=== PATIENT | female | born 1945 | race Caucasian/White ===

== ENCOUNTER → 2024-03-16 | Outpatient (CLI) | payer MEDICARE, SELFPAY ==
[2024-03-23 06:41] LABS: Fecal Globin Result DETECTED (NOT DETECTED)
== END | disposition home or self-care (01) ==
LOC: SLDO 11:05
PROVIDERS: Referring Provider Family Medicine; Visit Provider Family Medicine
DX: D64.9 Anemia, unspecified (principal)
CPT/HCPCS: 82274; G0328

== ENCOUNTER → 2024-05-17 | Outpatient (CLI) | payer MEDICARE, SELFPAY ==
[2024-05-17 10:32] LABS: Basophils # (Auto) 0.1 Thou/mm3 (0.0-0.2); Basophils % (Auto) 1 % (0-2.5); Eosinophils # (Auto) 0.2 Thou/mm3 (0.0-0.5); Eosinophils % (Auto) 3 % (0-10); Hematocrit 36.9 % (36.0-46.0); Hemoglobin 11.6 g/dL (12.0-16.0); Immature Granulocytes % (Auto) 0 % (0-0); Immature Granulocytes Auto 0.02 Thou/mm3 (0.00-0.00); Lymphocytes # (Auto) 1.1 Thou/mm3 (1.0-4.8); Lymphocytes % (Auto) 15 % (10-50); Mean Corpuscular HGB Conc 31.4 g/dl (31.0-37.0); Mean Corpuscular Hemoglobin 25.2 pg (25.0-35.0); Mean Corpuscular Volume 80 fL (80-100); Monocytes # (Auto) 0.6 Thou/mm3 (0.0-0.8); Monocytes % (Auto) 8 % (0-12); Neutrophils # (Auto) 5.4 Thou/mm3 (1.8-7.7); Neutrophils % (Auto) 73 % (37-80); Nucleated Red Blood Cell % 0 /100 WBC (0); Platelet Count 247 Thou/mm3 (140-440); RDW Standard Deviation 48.4 fL (36.4-46.3); Red Blood Count 4.61 Miln/mm3 (4.00-5.20); White Blood Count 7.4 Thou/mm3 (3.6-11.0)
[2024-05-17 10:49] LABS: T4 (Thyroxine) 11.1 mcg/dL (4.5-10.9)
[2024-05-17 11:14] LABS: Glucose Estimated Average 131 mg/dL (80-131); Hemoglobin A1C 6.2 % Hgb (4.8-6.0)
[2024-05-17 11:16] LABS: Alanine Aminotransferase 17 U/L (10-49); Albumin, Serum 4.7 gm/dL (3.4-4.8); Albumin/Globulin Ratio 2.2 (1.2-2.2); Alkaline Phosphatase 83 U/L (46-116); Anion Gap 10 (7-16); Aspartate Amino Transferase < 8 U/L (0-34); BUN/Creatinine Ratio 25 Ratio (12-20); Bilirubin,Total 0.4 mg/dL (0.3-1.2); Blood Urea Nitrogen 20 mg/dL (9-23); Calcium 9.6 mg/dL (8.3-10.6); Calcium (Corrected) 9.6 mg/dL (8.5-10.1); Carbon Dioxide 28.3 mMol/L (20.0-31.0); Cardiac Risk Estimate 3.3 RATIO (3.7-5.6); Chloride 104 mMol/L (98-107); Cholesterol 125 mg/dL (132-200); Creatinine (Component) 0.8 mg/dL (0.6-1.3); Globulin 2.1 gm/dL (2.3-3.5); Glucose 135 mg/dL (74-106); HDL Cholesterol 38 mg/dL (40-60); LDL Cholesterol,Calculated 70 mg/dL (0-130); Osmolality,Calculated 287 (275-295); Potassium 4.6 mMol/L (3.4-5.1); Sodium 142 mMol/L (136-145); Thyroid Stimulating Hormone 1.39 uIU/mL (0.55-4.78); Total Protein 6.8 gm/dL (5.7-8.2); Triglycerides 84 mg/dL (30-150); eGFR > 60 See Note
== END | disposition home or self-care (01) ==
LOC: COPL 09:28
PROVIDERS: PCP Family Medicine; Referring Provider Family Medicine; Visit Provider Family Medicine
DX: E11.9 Type 2 diabetes mellitus without complications (principal); I10 Essential (primary) hypertension; E78.2 Mixed hyperlipidemia; N39.490 Overflow incontinence
CPT/HCPCS: 36415; 80053; 80061; 83036; 84436; 84443; 85025

== ENCOUNTER 2024-05-31 08:25 | Day surgery (SDC) | payer MEDICARE, SELFPAY ==
[2024-05-31] VITALS (13 sets, daily range): BP systolic 131–195; BP diastolic 57–95; PULSE 63–82; RESP 12–20; TEMP 36.6–36.8; O2SAT 93–100; BMI 22.4
[2024-05-31] MEDS: ONDANSETRON INJ 2 MG/ML INJ 2 ML 4 MG IV (10:30)
[2024-05-31] MEDS: DiphenhydrAMINE INJ 50 MG/ML VIAL 25 MG IV (10:30)
[2024-05-31] MEDS: fentaNYL CIT INJ 50 mCg/ML AMP 2ML (ASD USE ONLY) IV (10:47)
[2024-05-31] MEDS: MIDAZOLAM INJ 1 MG/ML VIAL 2 ML (ASD USE ONLY) 2 MG IV (10:50)
[2024-05-31] MEDS: MEPERIDINE INJ 25 MG/ML VIAL (ASD USE ONLY) IV (10:50)
[2024-05-31] MEDS: SODIUM CHLORIDE 0.9% 500 ML 500 ML 125 ML IV (11:16)
== END 2024-05-31 12:07 | disposition home or self-care (01) ==
PROVIDERS: PCP Family Medicine; Referring Provider Specialist; Visit Provider Specialist
PROC: 0DBE8ZX Excision of Large Intestine, Via Natural or Artificial Opening Endoscopic, Diagnostic (ICD-10-PCS; CPT 45380; principal; 2024-05-31 09:30)
PROC: (CPT 43239; 2024-05-31 09:30)
DX: C16.2 Malignant neoplasm of body of stomach (principal); D50.9 Iron deficiency anemia, unspecified; K64.9 Unspecified hemorrhoids; K57.31 Diverticulosis of large intestine without perforation or abscess with bleeding; K29.51 Unspecified chronic gastritis with bleeding; K31.7 Polyp of stomach and duodenum; D12.3 Benign neoplasm of transverse colon
CPT/HCPCS: 45385; 45380; 88360; 88374; A4649; J1200; J2175; J2250; J2405; J3010; J7040

== ENCOUNTER → 2024-06-03 | Outpatient (CLI) | payer MEDICARE, SELFPAY ==
[2024-06-03 14:19] LABS: Alanine Aminotransferase 18 U/L (10-49); Albumin, Serum 4.5 gm/dL (3.4-4.8); Alkaline Phosphatase 82 U/L (46-116); Anion Gap 8 (7-16); Aspartate Amino Transferase 20 U/L (0-34); BUN/Creatinine Ratio 20 Ratio (12-20); Bilirubin,Total 0.4 mg/dL (0.3-1.2); Blood Urea Nitrogen 14 mg/dL (9-23); Calcium 10.7 mg/dL (8.3-10.6); Calcium (Corrected) 10.7 mg/dL (8.5-10.1); Carbon Dioxide 30.3 mMol/L (20.0-31.0); Chloride 104 mMol/L (98-107); Creatinine (Component) 0.7 mg/dL (0.6-1.3); Globulin 2.2 gm/dL (2.3-3.5); Glucose 97 mg/dL (74-106); Osmolality,Calculated 283 (275-295); Potassium 4.4 mMol/L (3.4-5.1); Sodium 142 mMol/L (136-145); Total Protein 6.7 gm/dL (5.7-8.2); eGFR > 60 See Note
== END | disposition home or self-care (01) ==
LOC: CDIM 13:04 → SCAT 13:06 → CDIM 06-04 09:06
PROVIDERS: PCP Family Medicine; Referring Provider Specialist; Visit Provider Specialist
DX: C16.9 Malignant neoplasm of stomach, unspecified (principal)
CPT/HCPCS: 36415; 80053

== ENCOUNTER → 2024-06-04 | Outpatient (CLI) | payer MEDICARE, SELFPAY ==
--- NOTE | 2024-06-04 09:36 | XR_ITS ---
Examination: CT chest with intravenous contrast CT abdomen with intravenous contrast CT pelvis with intravenous contrast 2-D coronal and sagittal reconstructions Time of exam: June 04, 2024 0940 hours INDICATIONS: Diagnosis gastric carcinoma 4 days ago, history malignant neoplasm colon, staging CTDI: vol (mGy) : 14.8 DLP: (mGycm): 604 Technique: Multiple axial images of the chest, abdomen and pelvis with intravenous contrast, 3.0 mm slice thickness. Images obtained post intravenous injection Isovue 370 60 cc. 2-D sagittal and coronal reconstructions. Low dose protocols were performed. One or more of the following dose reduction techniques were used; automated exposure control, adjustment of the mA and/or KV according to patient size, use of iterative reconstruction technique. Findings: No thoracic aortic aneurysmal dilatation Pulmonary artery segments are not enlarged No pulmonary artery emboli Mild right hilar lymphadenopathy, 10 mm, axial image 76 4 mm pulmonary nodule left lower lobe image 179 5 mm pulmonary nodule lingular segment left upper lobe image 182 3 mm pulmonary nodule right upper lobe image 186 No pneumonia or pulmonary edema Diffuse wall thickening involving the stomach especially the retrocardiac gastric hernia portion of the stomach 11 mm right lobe liver cyst, 9 mm right lobe liver cyst Cholelithiasis Spleen is not enlarged Suspicious for 2 to 3 mm perigastric lymph nodes axial image 160 15 mm indeterminate left adrenal nodule No pancreatic mass No renal or ureteral calculi, no hydronephrosis 3 mm left lateral periaortic lymph node image 200 No bowel obstruction No pericecal inflammatory change Normal appendix Mildly fluid distended small bowel loops in the pelvis Retroverted uterus with large calcified area of fibroid degeneration in the fundus, 5 cm Contracted urinary bladder Severe osteopenia with advanced disc narrowing L3-L4, L4-L5 IMPRESSION: Noncalcified subcentimeter pulmonary nodules as above, with this study as baseline recommend 6 month follow-up CT chest without contrast Diffuse wall thickening involving the stomach Suspicious for multiple 2 to 3 mm perigastric lymph nodes Cholelithiasis 3 mm left lateral periaortic lymph node Consider PET CT scan staging examination follow-up
== END | disposition home or self-care (01) ==
PROVIDERS: PCP Family Medicine; Referring Provider Specialist; Visit Provider Specialist
DX: R91.8 Other nonspecific abnormal finding of lung field (principal); K31.89 Other diseases of stomach and duodenum; K80.20 Calculus of gallbladder without cholecystitis without obstruction; C16.9 Malignant neoplasm of stomach, unspecified
CPT/HCPCS: 71260; 74177; A4649; Q9967

== ENCOUNTER → 2024-07-26 | Outpatient (CLI) | payer MEDICARE, SELFPAY ==
[2024-07-22 16:32] VITALS: BMI 22.6
[2024-07-23 11:34] LABS: Basophils # (Auto) 0.1 Thou/mm3 (0.0-0.2); Basophils % (Auto) 1 % (0-2.5); Eosinophils # (Auto) 0.2 Thou/mm3 (0.0-0.5); Eosinophils % (Auto) 3 % (0-10); Hematocrit 31.7 % (36.0-46.0); Hemoglobin 9.7 g/dL (12.0-16.0); Immature Granulocytes % (Auto) 0 % (0-0); Immature Granulocytes Auto 0.02 Thou/mm3 (0.00-0.00); Lymphocytes # (Auto) 1.3 Thou/mm3 (1.0-4.8); Lymphocytes % (Auto) 19 % (10-50); Mean Corpuscular HGB Conc 30.6 g/dl (31.0-37.0); Mean Corpuscular Hemoglobin 24.4 pg (25.0-35.0); Mean Corpuscular Volume 80 fL (80-100); Monocytes # (Auto) 0.6 Thou/mm3 (0.0-0.8); Monocytes % (Auto) 9 % (0-12); Neutrophils # (Auto) 4.7 Thou/mm3 (1.8-7.7); Neutrophils % (Auto) 68 % (37-80); Nucleated Red Blood Cell % 0 /100 WBC (0); Platelet Count 308 Thou/mm3 (140-440); RDW Standard Deviation 41.7 fL (36.4-46.3); Red Blood Count 3.97 Miln/mm3 (4.00-5.20); White Blood Count 6.9 Thou/mm3 (3.6-11.0)
[2024-07-23 11:50] LABS: Blood Urea Nitrogen 20 mg/dL (9-23); Creatinine (Component) 0.8 mg/dL (0.6-1.3); Estimated Creatinine Clearance 50.9 mL/min (>60); eGFR > 60 See Note
[2024-07-23 11:56] LABS: Partial Thromboplastin Time 21.9 Seconds (22.0-36.0); Prothrombin Time 10.9 Seconds (9.0-12.2)
[2024-07-26] VITALS (15 sets, daily range): BP systolic 142–186; BP diastolic 59–88; PULSE 59–79; RESP 12–23; TEMP 36.1–36.4; O2SAT 98–100
[2024-07-26] MEDS: SODIUM CHLORIDE 0.9% 500 ML 500 ML 20 ML IV (09:30)
--- NOTE | 2024-07-26 09:30 | XR_ITS ---
No focal Subclavian medicine Examination: IR venous implantation Port-A-Cath. Ultrasound-guided needle placement left internal jugular vein. Fluoroscopy AP Chest, portable single view Exam date and time: July 26, 2024 0942 hours INDICATIONS: Diagnosis malignant gastric neoplasm, need for long-term chemotherapy. Informed consent provided Technique: A timeout was completed, verifying correct patient, procedure, site, positioning, and special equipment if applicable The patient was placed in a dependent position appropriate for central line placement based on the vein to be cannulated. The patient's left neck was prepped and draped in sterile fashion. Maximum Sterile Barrier Technique used including cap, mask, sterile gown, sterile gloves, and sterile full body drape. If ultrasound technique used: sterile gel and sterile probe covers. Hand Hygiene performed using proper scrub, soap and water, or alcohol-based hand rub. Site right portable apparatus utilized to confirm patency of the left internal jugular vein Utilizing ultrasonographic guidance successful 21-gauge needle puncture into the left internal jugular vein Ultrasound images were recorded and stored. Subcutaneous pocket formed in the left upper chest with blunt dissection 24 cm 8 Israeli Port-A-Cath line placed through a venous sheath into the superior vena cava and connected to the Port-A-Cath reservoir and placed in the subcutaneous pocket Port-A-Cath incision site sutured Perfusion to the extremity distal to the point of catheter insertion was checked and found to be adequate The attending radiologist was present for the entire procedure Estimated blood loss4 cc. Findings: Under fluoroscopy, the tip of the catheter is in good position in the vena cava. Portable chest x-ray, post Port-A-Cath, as ordered. Impression: Successful IR venous implantation Port-A-Cath Successful ultrasound-guided venous access left internal jugular vein Fluoroscopy 0.8 minute radiation dose 2.92 milligray 1 spot fluoroscopic chest film. AP portable chest completion procedure demonstrates satisfactory position Port-A-Cath tip SVC. May use Port-A-Cath.
[2024-07-26] MEDS: ceFAZolin 1 GM in SODIUM CHLORIDE 0.9% 100 ML IV (09:33)
[2024-07-26] MEDS: fentaNYL CIT INJ 50 mCg/ML AMP 2ML 100 MCG IVP (10:18)
[2024-07-26] MEDS: HEPARIN SOD LOCK SYR 100 UNIT/ML 500 UNIT STFIELD (10:20)
[2024-07-26] MEDS: LIDOCAINE 1% W/EPI 1:100K 20 ML VIAL 7 ML INFL (10:20)
[2024-07-26] MEDS: LIDOCAINE INJ PF 1% 30 ML VIAL 8 ML INFL (10:20)
[2024-07-26] MEDS: ceFAZolin INJ 1 GM VIAL STFIELD (10:20)
--- NOTE | 2024-07-26 11:59 | PC.NURSE ---
1053 patient is awake, alert, breathing unlabored, s/p port placement to left IJ, dressing to left chest dry with no bleeding, patient transferred to label sewer for 1hr recovery. 1159 patient is awake, alert, breathing unlabored, dressing dry with no active bleeding, discharge instructions given to patient and friend Shanell, patient discharged home in wheelchair with all belongings.
--- NOTE | 2024-07-26 12:32 | PC.NURSE ---
patient allergic to fentanyl, dr guzman order versed for sedation
== END | disposition home or self-care (01) ==
PROVIDERS: Radiology Diagnostic Radiology; PCP Family Medicine; Referring Provider Internal Medicine Hematology & Oncology; Visit Provider Internal Medicine Hematology & Oncology
DX: C16.9 Malignant neoplasm of stomach, unspecified (principal); Z01.818 Encounter for other preprocedural examination
CPT/HCPCS: 36558; 36415; 76937; 77001; 82565; 84520; 85025; 85610; 85730; C1769; C1788; C1894; J0690; J1642; J3010; J3490; J7040; J7050

== ENCOUNTER 2024-08-04 10:52 | Outpatient (RCR) | payer MEDICARE, SELFPAY ==
--- NOTE | 2024-07-14 17:01 | CTCCONSULT_ITS ---
[facility] [address] [place], [place] [address] Consultation Note Date: 07/14/2024 MR#: [id number] Name: BERT POP : 1945 Dx: C16.9 Malignant neoplasm of stomach, unspecified Attending physician. Arcenio Ding MD Reason for consultation. Patient with recent diagnosis of gastric CA referred to the cancer treatment center. 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 Patient was noticed to be anemic hemoglobin 9.3 with heme positive stool weight loss and early satiety and referred to Dr. Cantrell who on upper endoscopy 05/31/2024 noted 3 cm gastric mass in mid body with central ulceration. 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 Biopsies from stomach antrum, cardia, polyp from fundus were negative for malignancy or dysplasia. There were no loss of expression in all 4 mismatch proteins. Colonoscopy revealed few small mouthed diverticula in sigmoid colon and hemorrhoids perineal area with 1 polyp in transverse colon removed with negative biopsy result. CT scan chest abdomen pelvis 06/04/2024 revealed diffuse wall thickening involving the stomach noncalci fied subcentimeter pulmonary nodules suspicious multiple 2 to 3 mm perigastric lymph nodes and 3 mm left lateral periaortic lymph node. Has already seen [facility] GI surgeon Dr. Redd Mishra at [facility] who ordered upper GI endoscopy biopsy with ultrasound on 07/12/2024. They report 4 cm ulcerated gastric body mass on anterior wall and appears to be T3 N1 stage with 1 x 1 cm hypoechoic well-rounded lymph node in the perigastric region that was highly suspicious for jame mets. Also noted was pancreas body 10 x 6 mm hypoechoic FNA x 4 preliminary cytology suggests neuroendocrine tumor. [facility] has recommended chemotherapy to be followed by surgery. Patient who had prior chemo at the local cancer center wished to have it done here. 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 Anemia bladder infections diabetes kidney stones Meds. Metformin losartan oxybutynin Prilosec calcium vitamin D C Allergies none to meds Social History: Patient retired grew up in [facility] lives in [place] no smoking rare drinking; never has been and Review of Systems: Has had significant weight loss; has chronic discomfort urinary voiding possibly related to prior radiation therapy Physical Exam: Adequate nourished appearing lady in no acute distress General: HEENT: Atraumatic normocephalic extraocular is intact no oral lesion no cervical or supraclavicular adenopathy. CV: Chest clear to auscultation heart regular rate and rhythm ABD: Soft and organomegaly or tenderness EXT: No sinus clubbing or edema Assessment:1. Recent discovery of invasive adenocarcinoma intestinal type grade 1 in mid body of stomach. CT reveals small perigastric and left lateral para- aortic lymph node. Endoscopic ultrasound performed at [facility] suggest T3 N1 stage. 2. Pancreas body 10 x 6 mm FNA performed cytology reveals neuroendocrine tumor final path pending. 2. Redd Mishra, GI surgeon recommends chemo to be followed by surgery. 3. Successfully treated for anal cancer at local center 12 years ago, would like to receive chemo here and will order port placement and introduce patient to Dr. Silva our medical oncologist. 4. Thank you very much for allowing us to evaluate and manage this patient. Cc: MD Redd Velásquez MD, MD, [facility], GI surgery Electronically signed by: Igor Gates MD, DABR 07/14/2024 4:59 PM
--- NOTE | 2024-07-15 07:43 | CTCCONSULT_ITS ---
[facility] [address] [place], [place] [address] Consultation Note Date: 07/15/2024 MR#: [id number] Name: BERT POP : 1945 Dx: C16.9 Malignant neoplasm of stomach, unspecified Addendum pathology. [facility] reviewed path sample from 05/31/2024 from [place]. Invasive moderately differential adenocarcinoma to depth invasion cannot be determined and HER2 FISH equivocal 2+. Indeterminate Electronically signed by: Igor Gates MD, DABR 07/15/2024 7:41 AM
--- NOTE | 2024-07-21 14:41 | CTCCONSULT_ITS ---
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 She was treated in [place] with concurrent chemoradiation with 5-FU. Patient was evaluated for anemia as her stools were Hemoccult positive patient underwent EGD which showed stomach mass in the mid body which was positive for invasive adenocarcinoma intestinal-type grade 1. All other areas were negative and H. Pylori was negative. There was no loss of expression of MSH2 6 PMS2 or MLH1. 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 Calcium 600 + D - 600 mg Daily 2. losartan - 25 mg 1 tab Daily 3. metformin - 750 mg Twice a Day 4. Prilosec - 20 mg Daily 5. Vitamin C - 1,000 mg 1 tab Daily Medications Last Reconciled by Cherelle Boyer RN on 07/21/2024 ALLERGIES: NKA*; No Known Drug Allergies REVIEW OF SYSTEMS: A complete 14-point review of systems was performed and is negative except as noted in interval history. PHYSICAL EXAMINATION: VITAL SIGNS: Temperature?97, B/P?146/74, Height?64?inches, Oxygen?Saturation?98% Weight?131?lbs (Change?since?07/14/24:?-2?lbs) PAIN: 0 - No pain ECOG Performance Status: 0 - Asymptomatic and fully active GENERAL APPEARANCE: Appears well, in no apparent distress, appropriately interactive. HEENT: Normocephalic, no temporal wasting, normal conjunctiva, no scleral icterus, normal hearing, lips without lesions, neck normal range of motion. CARDIOVASCULAR: Not assessed. PULMONARY: Normal respiratory effort, no respiratory distress or use of accessory muscles, speaking in full sentences, no tachypnea. EXTREMITIES: No pedal edema or cyanosis. SKIN: Normal skin appearance. NEUROLOGIC: Alert and oriented x4. PSHYCHIATRIC: Appropriate affect, mood normal, behavior normal, intact thought and speech. LABORATORY DATA: I have personally reviewed and interpreted each of the patient?s relevant lab tests, abnormal findings are below: Date 03/10/24 05/17/24 06/03/24 ??WHITE?BLOOD?COUNT?(Thou/mm3) ? 7.4 ? ??RED?BLOOD?COUNT?(Miln/mm3) ? 4.61 ? ??HEMOGLOBIN?(gm/dl) ? 11.6?L ? ??HEMATOCRIT?(%) ? 36.9 ? ??PLATELET?COUNT?(Thou/mm3) ? 247 ? ??NEUTROPHILS?%,?AUTO?(%) ? 73 ? ??LYMPH?%,?AUTO?(%) ? 15 ? ??NEUTROPHILS,?AUTO?(Thou/mm3) ? 5.4 ? ??GLUCOSE,RANDOM?(mg/dL) 146?H 135?H 97 ??BLOOD?UREA?NITROGEN?(mg/dL) 18 20 14 ??CREATININE?(mg/dL) 0.80 0.80 0.70 ??SODIUM?(mmol/L) 141 142 142 ??POTASSIUM?(mmol/L) 4.2 4.6 4.4 ??CHLORIDE?(mmol/L) 106 104 104 ??AST/SGOT?(Unit/L) 14 <?8 20 ??ALT/SGPT?(Unit/L) 11 17 18 ??ALKALINE?PHOSPHATASE?(Unit/L) 77 83 82 ??BILIRUBIN,?TOTAL?(mg/dL) 0.4 0.4 0.4 ??PROTEIN?TOTAL?(gm/dl) 6.9 6.8 6.7 ??ALBUMIN,?SERUM?(gm/dl) 4.5 4.7 4.5 ??GLOBULIN?(gm/dl) 2.4 2.1?L 2.2?L ??ALBUMIN/GLOBULIN?RATIO 1.9 2.2 2.0 ??CALCIUM,?SERUM?(mg/dL) 9.8 9.6 10.7?H ??CALCIUM?SERUM?(CORRECTED)?(mg/dL) 9.8 9.6 10.7?H ASSESSMENT/PLAN: #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 Will start on neoadjuvant chemotherapy with FLOT Patient will get 4 cycles of FLOT get surgery and then will be followed with 4 more cycles of FLOT Will get port catheter placed LAYLA Discussed adverse effects of chemotherapy Patient is very motivated to get treatment Patient have CPS more than 1 and HER2 is just 2+ PERIOPERATIVE CHEMOTHERAPY PREFERRED REQIMEN fluorouracil leucovorin oxaliplatin and docetaxel FLOT 4 cycles of preoperative and 4 cycles postoperative (- Fluorouracil 2600 mglmz IV continuous infusion over 24 hours on Day 1 Leucovorin 200 mglmz IV on Day 1 Oxaliplatin 85 mglmz IV on Day 1 Docetaxel 50 mglmz IV on Day 1 Cycled every 14 days1--as patient is elderly dose reduced by 20% to increase tolerance Will monitor with haydee #2 pancreatic tumor Biopsy reviewed Final report is pending . Final biopsy cytology report request from [facility]: Order # Description [id number] Follow Up Appointment MD [id number] Comprehensive Metabolic Panel - 12 + CBC with Auto Diff + [facility] + [id number] Port Placement [id number] CBC + Comprehensive Metabolic Panel + [facility] [id number] Lab Appointment [id number] Follow Up Appointment [id number] CBC + Comprehensive Metabolic Panel + [facility] [id number] Lab Appointment [id number] Follow Up Appointment [id number] CBC + Comprehensive Metabolic Panel + [facility] [id number] Lab Appointment [id number] Follow Up Appointment MD [id number] CBC + Comprehensive Metabolic Panel + [facility] [id number] Lab Appointment RETURN TO CLINIC: 4 weeks BILLING AND COMPLIANCE: I reviewed external records from providers outside my specialty as summarized above. I spent a total of 50 minutes on this patient?s care on the day of their visit excluding time spent related to any billed procedures. This time includes time spent with the patient as well as time spent documenting in the medical record, reviewing patients records and tests, obtaining history, placing orders, communicating with other healthcare professionals, counseling the patient, family or caregiver, and/or care coordination for the diagnoses above. Electronically Signed by: Pedro Silva MD T: 2:39 PM CC: PCP: Arcenio Ding Referring: Arcenio Ding This document was completed utilizing speech recognition software. Grammatical errors, random word insertions, pronoun errors, and incomplete sentences are an occasional consequence of this system due to software limitations, ambient noise, and hardware issues. Any formal questions or concerns about the content, text or information contained within the body of this dictation should be directly addressed to the provider for clarification.
[2024-08-02 16:40] LABS: Basophils % (Auto) 1 % (0-2.5); Eosinophils % (Auto) 0 % (0-10); Hematocrit 30.6 % (36.0-46.0); Hemoglobin 9.3 g/dL (12.0-16.0); Immature Granulocytes % (Auto) 1 % (0-0); Immature Granulocytes Auto 0.06 Thou/mm3 (0.00-0.00); Lymphocytes # (Auto) 0.6 Thou/mm3 (1.0-4.8); Lymphocytes % (Auto) 8 % (10-50); Mean Corpuscular HGB Conc 30.4 g/dl (31.0-37.0); Mean Corpuscular Hemoglobin 23.8 pg (25.0-35.0); Mean Corpuscular Volume 79 fL (80-100); Monocytes # (Auto) 0.1 Thou/mm3 (0.0-0.8); Monocytes % (Auto) 1 % (0-12); Neutrophils # (Auto) 6.2 Thou/mm3 (1.8-7.7); Neutrophils % (Auto) 89 % (37-80); Nucleated Red Blood Cell % 0 /100 WBC (0); Platelet Count 289 Thou/mm3 (140-440); RDW Standard Deviation 40.4 fL (36.4-46.3); White Blood Count 6.9 Thou/mm3 (3.6-11.0)
[2024-08-02 17:00] LABS: Alanine Aminotransferase 11 U/L (10-49); Albumin, Serum 4.4 gm/dL (3.4-4.8); Albumin/Globulin Ratio 1.7 (1.2-2.2); Alkaline Phosphatase 85 U/L (46-116); Anion Gap 12 (7-16); Aspartate Amino Transferase 14 U/L (0-34); BUN/Creatinine Ratio 21 Ratio (12-20); Bilirubin,Total 0.4 mg/dL (0.3-1.2); Blood Urea Nitrogen 17 mg/dL (9-23); Calcium 9.6 mg/dL (8.3-10.6); Calcium (Corrected) 9.6 mg/dL (8.5-10.1); Carbon Dioxide 23.6 mMol/L (20.0-31.0); Chloride 103 mMol/L (98-107); Creatinine (Component) 0.8 mg/dL (0.6-1.3); Globulin 2.6 gm/dL (2.3-3.5); Glucose 214 mg/dL (74-106); Osmolality,Calculated 285 (275-295); Potassium 4.5 mMol/L (3.4-5.1); Sodium 139 mMol/L (136-145); eGFR > 60 See Note
[2024-08-02 17:01] LABS: Carcinoembryonic Antigen 1.7 ng/mL (0.0-5.0)
== END 2024-08-09 23:59 | disposition home or self-care (01) ==
LOC: SCTC 10:52
PROVIDERS: PCP Family Medicine; Referring Provider Family Medicine; Visit Provider Internal Medicine Hematology & Oncology
DX: Z51.11 Encounter for antineoplastic chemotherapy (principal); C16.2 Malignant neoplasm of body of stomach; C7A.8 Other malignant neuroendocrine tumors; Z85.048 Personal history of other malignant neoplasm of rectum, rectosigmoid junction, and anus
CPT/HCPCS: 36591; 80053; 82378; 85025; 96366; 96367; 96368; 96413; 96415; 96416; 96417; 99213; 99424; 99425; A4216; J0640; J1100; J1453; J1642; J2405; J7050; J7060; J9171; J9190; J9263; G0463

== ENCOUNTER → 2024-09-06 | Outpatient (CLI) | payer MEDICARE, SELFPAY ==
[2024-09-06 11:35] LABS: Alanine Aminotransferase 15 U/L (10-49); Albumin, Serum 4.4 gm/dL (3.4-4.8); Albumin/Globulin Ratio 1.9 (1.2-2.2); Alkaline Phosphatase 131 U/L (46-116); Anion Gap 9 (7-16); Aspartate Amino Transferase 21 U/L (0-34); BUN/Creatinine Ratio 20 Ratio (12-20); Bilirubin,Total 0.4 mg/dL (0.3-1.2); Blood Urea Nitrogen 14 mg/dL (9-23); Calcium 9.3 mg/dL (8.3-10.6); Calcium (Corrected) 9.3 mg/dL (8.5-10.1); Carbon Dioxide 27.4 mMol/L (20.0-31.0); Chloride 103 mMol/L (98-107); Creatinine (Component) 0.7 mg/dL (0.6-1.3); Globulin 2.3 gm/dL (2.3-3.5); Glucose 220 mg/dL (74-106); Osmolality,Calculated 285 (275-295); Potassium 3.9 mMol/L (3.4-5.1); Sodium 139 mMol/L (136-145); Total Protein 6.7 gm/dL (5.7-8.2); eGFR > 60 See Note
[2024-09-06 11:37] LABS: Carcinoembryonic Antigen 1.5 ng/mL (0.0-5.0)
[2024-09-06 12:29] LABS: Basophils # (Auto) 0.2 Thou/mm3 (0.0-0.2); Basophils % (Auto) 2 % (0-2.5); Eosinophils # (Auto) 0.1 Thou/mm3 (0.0-0.5); Eosinophils % (Auto) 1 % (0-10); Hematocrit 29.3 % (36.0-46.0); Hemoglobin 8.9 g/dL (12.0-16.0); Immature Granulocytes % (Auto) 12 % (0-0); Immature Granulocytes Auto 1.63 Thou/mm3 (0.00-0.00); Lymphocytes # (Auto) 1.2 Thou/mm3 (1.0-4.8); Lymphocytes % (Auto) 9 % (10-50); Mean Corpuscular HGB Conc 30.4 g/dl (31.0-37.0); Mean Corpuscular Hemoglobin 23.5 pg (25.0-35.0); Mean Corpuscular Volume 77 fL (80-100); Monocytes % (Auto) 8 % (0-12); Neutrophils # (Auto) 9.1 Thou/mm3 (1.8-7.7); Neutrophils % (Auto) 69 % (37-80); Nucleated Red Blood Cell # 0.02 Thou/mm3 (0.00-0.00); Nucleated Red Blood Cell % 0 /100 WBC (0); Platelet Count 222 Thou/mm3 (140-440); RDW Standard Deviation 44.6 fL (36.4-46.3); Red Blood Count 3.79 Miln/mm3 (4.00-5.20); White Blood Count 13.2 Thou/mm3 (3.6-11.0)
== END | disposition home or self-care (01) ==
LOC: COPL 10:20
PROVIDERS: PCP Family Medicine; Referring Provider Internal Medicine Hematology & Oncology; Visit Provider Internal Medicine Hematology & Oncology
DX: C16.9 Malignant neoplasm of stomach, unspecified (principal)
CPT/HCPCS: 36415; 80053; 82378; 85025

== ENCOUNTER 2024-10-08 09:15 | Outpatient (RCR) | payer MEDICARE, SELFPAY ==
[2024-09-20 12:27] LABS: Basophils % (Auto) 1 % (0-2.5); Eosinophils # (Auto) 0.1 Thou/mm3 (0.0-0.5); Eosinophils % (Auto) 1 % (0-10); Hematocrit 27.4 % (36.0-46.0); Immature Granulocytes % (Auto) 7 % (0-0); Lymphocytes % (Auto) 19 % (10-50); Mean Corpuscular HGB Conc 30.7 g/dl (31.0-37.0); Mean Corpuscular Hemoglobin 22.7 pg (25.0-35.0); Mean Corpuscular Volume 74 fL (80-100); Monocytes # (Auto) 0.7 Thou/mm3 (0.0-0.8); Monocytes % (Auto) 13 % (0-12); Neutrophils # (Auto) 3.2 Thou/mm3 (1.8-7.7); Neutrophils % (Auto) 60 % (37-80); Nucleated Red Blood Cell % 0 /100 WBC (0); Platelet Count 267 Thou/mm3 (140-440); RDW Standard Deviation 46.4 fL (36.4-46.3); White Blood Count 5.4 Thou/mm3 (3.6-11.0)
[2024-09-20 12:36] LABS: Hemoglobin 8.4 g/dL (12.0-16.0)
[2024-09-20 12:38] LABS: Alanine Aminotransferase 22 U/L (10-49); Albumin, Serum 4.2 gm/dL (3.4-4.8); Albumin/Globulin Ratio 1.9 (1.2-2.2); Alkaline Phosphatase 108 U/L (46-116); Anion Gap 8 (7-16); Aspartate Amino Transferase 22 U/L (0-34); BUN/Creatinine Ratio 24 Ratio (12-20); Bilirubin,Total 0.4 mg/dL (0.3-1.2); Blood Urea Nitrogen 17 mg/dL (9-23); Calcium 8.7 mg/dL (8.3-10.6); Calcium (Corrected) 8.7 mg/dL (8.5-10.1); Carbon Dioxide 27.7 mMol/L (20.0-31.0); Chloride 107 mMol/L (98-107); Creatinine (Component) 0.7 mg/dL (0.6-1.3); Globulin 2.2 gm/dL (2.3-3.5); Glucose 143 mg/dL (74-106); Osmolality,Calculated 288 (275-295); Potassium 4.1 mMol/L (3.4-5.1); Sodium 143 mMol/L (136-145); Total Protein 6.4 gm/dL (5.7-8.2); eGFR > 60 See Note
[2024-09-20 12:41] LABS: Carcinoembryonic Antigen 0.9 ng/mL (0.0-5.0)
[2024-10-05 08:15] LABS: Basophils % (Auto) 1 % (0-2.5); Eosinophils % (Auto) 0 % (0-10); Hematocrit 26.7 % (36.0-46.0); Immature Granulocytes % (Auto) 10 % (0-0); Immature Granulocytes Auto 0.63 Thou/mm3 (0.00-0.00); Lymphocytes # (Auto) 0.6 Thou/mm3 (1.0-4.8); Lymphocytes % (Auto) 9 % (10-50); Mean Corpuscular Hemoglobin 22.5 pg (25.0-35.0); Mean Corpuscular Volume 75 fL (80-100); Monocytes # (Auto) 0.3 Thou/mm3 (0.0-0.8); Monocytes % (Auto) 5 % (0-12); Neutrophils # (Auto) 4.8 Thou/mm3 (1.8-7.7); Neutrophils % (Auto) 76 % (37-80); Nucleated Red Blood Cell # 0.02 Thou/mm3 (0.00-0.00); Nucleated Red Blood Cell % 0 /100 WBC (0); Platelet Count 203 Thou/mm3 (140-440); RDW Standard Deviation 50.6 fL (36.4-46.3); Red Blood Count 3.56 Miln/mm3 (4.00-5.20); White Blood Count 6.3 Thou/mm3 (3.6-11.0)
[2024-10-05 08:36] LABS: Alanine Aminotransferase 20 U/L (10-49); Albumin, Serum 4.2 gm/dL (3.4-4.8); Albumin/Globulin Ratio 2.1 (1.2-2.2); Alkaline Phosphatase 95 U/L (46-116); Anion Gap 9 (7-16); Aspartate Amino Transferase 23 U/L (0-34); BUN/Creatinine Ratio 23 Ratio (12-20); Bilirubin,Total 0.4 mg/dL (0.3-1.2); Blood Urea Nitrogen 16 mg/dL (9-23); Carbon Dioxide 26.2 mMol/L (20.0-31.0); Chloride 105 mMol/L (98-107); Creatinine (Component) 0.7 mg/dL (0.6-1.3); Glucose 326 mg/dL (74-106); Osmolality,Calculated 293 (275-295); Potassium 4.4 mMol/L (3.4-5.1); Sodium 140 mMol/L (136-145); Total Protein 6.2 gm/dL (5.7-8.2); eGFR > 60 See Note
[2024-10-05 08:41] LABS: Carcinoembryonic Antigen 0.9 ng/mL (0.0-5.0)
== END 2024-10-09 23:59 | disposition home or self-care (01) ==
LOC: SCTC 09:15
PROVIDERS: PCP Family Medicine; Referring Provider Family Medicine; Visit Provider Internal Medicine Hematology & Oncology
DX: Z51.11 Encounter for antineoplastic chemotherapy (principal); C16.9 Malignant neoplasm of stomach, unspecified; C25.1 Malignant neoplasm of body of pancreas; D72.819 Decreased white blood cell count, unspecified
CPT/HCPCS: 36415; 80053; 82378; 85025; 96367; 96368; 96372; 96413; 96415; 96416; 96417; 99424; A4216; J0640; J1100; J1453; J1642; J2405; J7050; J9171; J9190; J9263; Q5101

== ENCOUNTER → 2024-10-25 | Outpatient (CLI) | payer MEDICARE, SELFPAY ==
--- NOTE | 2024-10-25 11:30 | XR_ITS ---
Examination: CT chest with intravenous contrast CTA abdomen with intravenous contrast CT pelvis with intravenous contrast CT chest, without intravenous contrast. CT abdomen, without intravenous contrast. CT pelvis, without intravenous contrast. 2-D sagittal and coronal reconstructions. 3-D reconstructions. Date and time of exam:October 25, 2024 11:44 AM Comparison June 04, 2024 INDICATIONS: Diagnosis stomach cancer weight loss 35 pounds in 6 months, anemia, restaging CTDI vol (mgy) 10.4 DLP (MGycm)709 Technique: Multiple CT images, 3.0 mm slice thickness, obtained chest, abdomen, pelvis, with the high-resolution 64 slice scanner.., Pre and post intravenous administration 60 cc Isovue-370 Sagittal and coronal 2-D reconstructions are obtained. 3-D reconstructions Low dose protocols were performed. One or more of the following dose reduction techniques were used; automated exposure control, adjustment of the mA and/or KV according to patient size, use of iterative reconstruction technique. Findings: No thoracic aortic aneurysmal dilatation or dissection No pulmonary artery filling defects No paratracheal tracheobronchial or bronchopulmonary adenopathy Large retrocardiac gastric hernia Stable 2 mm pulmonary nodule right upper lobe The additional pulmonary nodules noted on the June 04, 2024 exam are not seen on this study and there are no new pulmonary nodules No pneumonia or pulmonary edema Diffuse thickening of the gastric mucosa again noted especially fundus and body the stomach On this study no perigastric lymph nodes Cholelithiasis, negative for gallbladder wall thickening No liver metastatic lesions No pancreatic mass 15 mm stable left adrenal nodule Stable left lateral periaortic lymph node No new abdominal lymphadenopathy No pelvic lymphadenopathy Large calcified uterine fibroid mass Urinary bladder intact Prominent osteopenia IMPRESSION: Compared with CT chest abdomen pelvis June 04, 2024: Stable 2 mm pulmonary nodule right upper lobe, no new pulmonary nodules Again noted diffuse abnormal wall thickening involving the stomach especially fundus and body of the stomach Perigastric lymph nodes are not depicted on this exam Stable small left lateral periaortic lymph node, no new abdominal lymphadenopathy No pelvic lymphadenopathy Stable 15 mm left adrenal nodule
== END | disposition home or self-care (01) ==
LOC: CCTX 11:11
PROVIDERS: PCP Family Medicine; Referring Provider Internal Medicine Hematology & Oncology; Visit Provider Internal Medicine Hematology & Oncology
DX: R91.1 Solitary pulmonary nodule (principal); D25.9 Leiomyoma of uterus, unspecified; C16.9 Malignant neoplasm of stomach, unspecified
CPT/HCPCS: 71270; 74178; A4649; Q9967

== ENCOUNTER 2024-11-08 14:50 | Outpatient (RCR) | payer MEDICARE, SELFPAY ==
[2024-10-18 12:23] LABS: Basophils % (Auto) 0 % (0-2.5); Eosinophils % (Auto) 0 % (0-10); Hematocrit 28.9 % (36.0-46.0); Immature Granulocytes % (Auto) 1 % (0-0); Immature Granulocytes Auto 0.05 Thou/mm3 (0.00-0.00); Lymphocytes # (Auto) 0.5 Thou/mm3 (1.0-4.8); Lymphocytes % (Auto) 12 % (10-50); Mean Corpuscular HGB Conc 29.8 g/dl (31.0-37.0); Mean Corpuscular Hemoglobin 22.3 pg (25.0-35.0); Mean Corpuscular Volume 75 fL (80-100); Monocytes # (Auto) 0.1 Thou/mm3 (0.0-0.8); Monocytes % (Auto) 4 % (0-12); Neutrophils # (Auto) 3.1 Thou/mm3 (1.8-7.7); Neutrophils % (Auto) 83 % (37-80); Nucleated Red Blood Cell % 0 /100 WBC (0); Platelet Count 235 Thou/mm3 (140-440); RDW Standard Deviation 52.4 fL (36.4-46.3); Red Blood Count 3.86 Miln/mm3 (4.00-5.20); White Blood Count 3.8 Thou/mm3 (3.6-11.0)
[2024-10-18 12:30] LABS: Hemoglobin 8.6 g/dL (12.0-16.0)
[2024-10-18 12:37] LABS: Alanine Aminotransferase 22 U/L (10-49); Albumin, Serum 4.4 gm/dL (3.4-4.8); Albumin/Globulin Ratio 2.1 (1.2-2.2); Alkaline Phosphatase 96 U/L (46-116); Anion Gap 10 (7-16); BUN/Creatinine Ratio 21 Ratio (12-20); Bilirubin,Total 0.4 mg/dL (0.3-1.2); Blood Urea Nitrogen 15 mg/dL (9-23); Calcium 9.2 mg/dL (8.3-10.6); Calcium (Corrected) 9.2 mg/dL (8.5-10.1); Carbon Dioxide 26.3 mMol/L (20.0-31.0); Chloride 106 mMol/L (98-107); Creatinine (Component) 0.7 mg/dL (0.6-1.3); Globulin 2.1 gm/dL (2.3-3.5); Glucose 193 mg/dL (74-106); Osmolality,Calculated 288 (275-295); Potassium 4.7 mMol/L (3.4-5.1); Sodium 142 mMol/L (136-145); Total Protein 6.5 gm/dL (5.7-8.2); eGFR > 60 See Note
[2024-10-18 12:40] LABS: Carcinoembryonic Antigen 0.6 ng/mL (0.0-5.0)
[2024-11-01 14:45] LABS: Basophils % (Auto) 1 % (0-2.5); Eosinophils % (Auto) 0 % (0-10); Hematocrit 27.5 % (36.0-46.0); Immature Granulocytes % (Auto) 2 % (0-0); Immature Granulocytes Auto 0.09 Thou/mm3 (0.00-0.00); Lymphocytes # (Auto) 0.7 Thou/mm3 (1.0-4.8); Lymphocytes % (Auto) 15 % (10-50); Mean Corpuscular HGB Conc 28.7 g/dl (31.0-37.0); Mean Corpuscular Hemoglobin 21.6 pg (25.0-35.0); Mean Corpuscular Volume 75 fL (80-100); Monocytes # (Auto) 0.2 Thou/mm3 (0.0-0.8); Monocytes % (Auto) 3 % (0-12); Neutrophils # (Auto) 3.5 Thou/mm3 (1.8-7.7); Neutrophils % (Auto) 79 % (37-80); Nucleated Red Blood Cell % 0 /100 WBC (0); Platelet Count 190 Thou/mm3 (140-440); RDW Standard Deviation 54.9 fL (36.4-46.3); Red Blood Count 3.66 Miln/mm3 (4.00-5.20); White Blood Count 4.4 Thou/mm3 (3.6-11.0)
[2024-11-01 14:50] LABS: Hemoglobin 7.9 g/dL (12.0-16.0)
[2024-11-01 15:07] LABS: Carcinoembryonic Antigen < 0.5 ng/mL (0.0-5.0)
[2024-11-01 15:08] LABS: Alanine Aminotransferase 20 U/L (10-49); Albumin, Serum 4.1 gm/dL (3.4-4.8); Albumin/Globulin Ratio 2.1 (1.2-2.2); Alkaline Phosphatase 84 U/L (46-116); Anion Gap 10 (7-16); Aspartate Amino Transferase 22 U/L (0-34); BUN/Creatinine Ratio 23 Ratio (12-20); Bilirubin,Total 0.4 mg/dL (0.3-1.2); Blood Urea Nitrogen 14 mg/dL (9-23); Carbon Dioxide 27.4 mMol/L (20.0-31.0); Chloride 105 mMol/L (98-107); Creatinine (Component) 0.6 mg/dL (0.6-1.3); Glucose 170 mg/dL (74-106); Osmolality,Calculated 287 (275-295); Potassium 4.2 mMol/L (3.4-5.1); Sodium 142 mMol/L (136-145); Total Protein 6.1 gm/dL (5.7-8.2); eGFR > 60 See Note
--- NOTE | 2024-11-28 16:16 | CTCFLWUP_ITS ---
Patient: BERT POP : 1945 Page 11 of 12 FOLLOW UP NOTE DATE OF SERVICE: 11/08/2024 NAME: BERT POP ACCOUNT: [id number] : 1945 AGE: 79 INTERVAL HISTORY: Carolyn, a patient with gastric cancer, presented for follow-up during her chemotherapy course. Her recent CT scan showed no new nodules, absent perigastric lymph nodes, and stable stomach thickening, indicating effective treatment. Both TeraTesting and Netera tests revealed a tumor marker of 0.29. Having completed 7 of 8 planned chemotherapy cycles with minimal side effects, she will finish treatment in November, receive white-cell shots, undergo pre- surgical testing (echocardiogram, EKG, blood work), and proceed to surgery 3-[address] Mishra. 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 Carolyn is a patient with a history of cancer undergoing chemotherapy treatment. She is currently on her 7th cycle of chemotherapy, which began on August 03 and is scheduled to continue through November. The patient's recent CT scan shows no new nodules or progression of the disease, indicating that the chemotherapy is working effectively. The edwin gastric lymph nodes are no longer present, and the parotid lymph node remains very small. The stomach thickening observed in previous scans remains unchanged. Carolyn reports handling the chemotherapy well, with minimal side effects. A Ellen test performed in August was positive at 0.29, indicating a very small tumor marker. A new Netera test, which measures minimal residual disease, also showed a result of 0.29. The patient is scheduled for her 8th and final chemotherapy treatment in November, after which she will receive white-cell shots. Carolyn has been actively involved in managing her care, keeping track of her treatments and maintaining calendars. She plans to contact the surgeon, Dr. Mishra, to inform him that her treatment is ending by the second week of November and to discuss scheduling the surgery. Medications and Supplements - Chemotherapy - Started on August 03 - 7 cycles completed, 8th cycle scheduled for November - Minimal side effects - Patient getting tired with each session Review of Systems General: Positive for fatigue. 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 Consumes berries, almonds, cashews, and protein shakes. Eats salmon or chicken daily with vegetables. - Exercise: Patient described as very active and fit - Nutrition: Clinician recommends a diet rich in berries, turmeric, spinach, salmon, chicken, vegetables, and protein shakes. Advised to avoid bread and focus on high-calorie, nutrient-dense foods like peanut butter and almond butter. Review of Systems General: Negative for weight loss. Laboratory, Imaging, and Diagnostic Test Results - TeraTesting test (August 2024): 0.29 (positive) - CT scan (date not specified): - No new nodules - Perigastric lymph nodes no longer present - Parotid lymph node remains very small - No new growth - Stomach thickening remains the same - Netera test (date not specified): 0.29 ONCOLOGY HISTORY: DIAGNOSIS: #1 malignant neoplasm of stomach, unspecified [ICD10] C16.9 Adenosquamous cell carcinoma #2 neuroendocrine tumor of pancreas DATE OF DIAGNOSIS: 06/04/2024 STAGE/TNM: #1 T3 N1 poorly differentiated invasive adenosquamous cell cancer HER2 2+ PD-L1 CPS more than 1 microsatellite stable #2 tumor of pancreas T3 N1 lymphoid tumor mixed with epithelial cells final biopsy still pending #3 history of anal cancer in 2011 treated with chemo RT with mitomycin 5-FU and in remission TREATMENT HISTORY: Care?Plan Start?Date Cycle Day Intent FLOT?neoadjuvant 07/21/2024 1 14 Curative?(adjuvant) FLOT?Perioperative 08/03/2024 1 14 Maintenance HISTORY OF PRESENT ILLNESS: 79-year-old female who had a regular colonoscopy at the age of 57 and there was no findings. 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 She was treated in [place] with concurrent chemoradiation with 5-FU. Patient was evaluated for anemia as her stools were Hemoccult positive patient underwent EGD which showed stomach mass in the mid body which was positive for invasive adenocarcinoma intestinal-type grade 1. All other areas were negative and H. Pylori was negative. There was no loss of expression of MSH2 6 PMS2 or MLH1. 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 Calcium 600 + D - 600 mg Daily 2. dexamethasone - 4 mg 2 tab Daily 3. losartan - 25 mg 1 tab Daily 4. metformin - 750 mg Twice a Day 5. ondansetron - 8 mg 1 tab Daily 6. Prilosec - 20 mg Daily 7. prochlorperazine maleate - 5 mg 1 tab Daily 8. Vitamin C - 1,000 mg 1 tab Daily Medications Last Reconciled by Mera Andino MD on 11/08/2024 ALLERGIES: NKA*; No Known Drug Allergies REVIEW OF SYSTEMS: A complete 14-point review of systems was performed and is negative except as noted in interval history. PHYSICAL EXAMINATION: VITAL SIGNS: Temperature?97, B/P?144/68, Oxygen?Saturation?97% Weight?125?lbs (Change?since?11/05/24:?-2.6?lbs) PAIN: 0 - No pain ECOG Performance Status: None GENERAL APPEARANCE: Appears well, in no apparent distress, appropriately interactive. HEENT: Normocephalic, no temporal wasting, normal conjunctiva, no scleral icterus, normal hearing, lips without lesions, neck normal range of motion. CARDIOVASCULAR: Not assessed. PULMONARY: Normal respiratory effort, no respiratory distress or use of accessory muscles, speaking in full sentences, no tachypnea. EXTREMITIES: No pedal edema or cyanosis. SKIN: Normal skin appearance. NEUROLOGIC: Alert and oriented x4. PSHYCHIATRIC: Appropriate affect, mood normal, behavior normal, intact thought and speech. LABORATORY DATA: I have personally reviewed and interpreted each of the patient?s relevant lab tests, abnormal findings are below: Date 11/01/24 11/15/24 ??WHITE?BLOOD?COUNT?(Thou/mm3) 4.4 3.7 ??RED?BLOOD?COUNT?(Miln/mm3) 3.66?L 4.19 ??HEMOGLOBIN?(gm/dl) 7.9?L 9.8?L ??HEMATOCRIT?(%) 27.5?L 32.9?L ??PLATELET?COUNT?(Thou/mm3) 190 171 ??NEUTROPHILS?%,?AUTO?(%) 79 79 ??LYMPH?%,?AUTO?(%) 15 14 ??NEUTROPHILS,?AUTO?(Thou/mm3) 3.5 2.9 ??GLUCOSE,RANDOM?(mg/dL) ? 169?H ??BLOOD?UREA?NITROGEN?(mg/dL) ? 15 ??CREATININE?(mg/dL) ? 0.70 ??SODIUM?(mmol/L) ? 144 ??POTASSIUM?(mmol/L) ? 4.2 ??CHLORIDE?(mmol/L) ? 105 ??CrCl?(CandG)?(ml/min) ? 61.40 ??AST/SGOT?(Unit/L) ? 31 ??ALT/SGPT?(Unit/L) ? 22 ??ALKALINE?PHOSPHATASE?(Unit/L) ? 96 ??BILIRUBIN,?TOTAL?(mg/dL) ? 0.5 ??PROTEIN?TOTAL?(gm/dl) ? 6.7 ??ALBUMIN,?SERUM?(gm/dl) ? 4.3 ??GLOBULIN?(gm/dl) ? 2.4 ??ALBUMIN/GLOBULIN?RATIO ? 1.8 ??CALCIUM,?SERUM?(mg/dL) ? 9.3 ??CALCIUM?SERUM?(CORRECTED)?(mg/dL) ? 9.3 ??CEA?(O*)?(ng/ml) ? 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 The cancer is microsatellite-stable, HER2 positive, and PDL1 positive. Carolyn, a patient with gastric cancer, is undergoing chemotherapy and preparing for surgery. Gastric Cancer Assessment: Patient is currently undergoing chemotherapy for gastric cancer. The CT scan shows no new nodules, indicating the chemotherapy is effective. Perigastric lymph nodes are no longer present, and the parotid lymph node remains very small. The stomach thickening remains unchanged. TeraTesting and Netera tests both showed a tumor marker of 0.29, indicating a very small tumor presence. The patient has completed 7 cycles of chemotherapy, with the 8th cycle scheduled for November. The patient has tolerated the chemotherapy well with minimal side effects. Plan: - Complete 8th cycle of chemotherapy in November - Administer white-cell shots after 8th treatment ( and Friday) - Perform pre-surgical tests: - Echocardiogram - EKG - Comprehensive blood work - Schedule follow-up with surgeon (Dr. Mishra) after or 8th treatment - Plan for surgery 3-4 weeks after last chemotherapy treatment - Conduct post-surgery Netera test in 6-8 weeks - If negative, continue monitoring - If positive, consider additional chemotherapy - Ensure all medical records, including scans and blood work, are sent to the surgeon - Coordinate with nurse navigator for appointment and record management Weight management Assessment: Patient's weight is a concern in the context of ongoing cancer treatment. Weight gain is recommended to improve overall health status and potentially reduce the risk of treatment-related complications, such as low blood cell counts. Plan: - Encourage weight gain through calorie-dense, nutritious foods - Recommend peanut butter, almond butter, baked salmon with butter, and other high-calorie, nutrient-rich options - Advise on protein-rich diet with emphasis on meats, fish, and healthy fats - Suggest replacing cereal-based breakfast with protein shake and mixed berries Patient have CPS more than 1 and HER2 is just 2+ PERIOPERATIVE CHEMOTHERAPY PREFERRED REQIMEN fluorouracil leucovorin oxaliplatin and docetaxel FLOT 4 cycles of preoperative and 4 cycles postoperative (- Fluorouracil 2600 mglmz IV continuous infusion over 24 hours on Day 1 Leucovorin 200 mglmz IV on Day 1 Oxaliplatin 85 mglmz IV on Day 1 Docetaxel 50 mglmz IV on Day 1 Cycled every 14 days1--as patient is elderly dose reduced by 20% to increase tolerance Will monitor with ellen #2 pancreatic tumor Biopsy reviewed No cancer ORDERS: Order # Description [id number] Follow Up Appointment [id number] CBC + Comprehensive Metabolic Panel + [facility] [id number] Lab Appointment [id number] Follow Up Appointment [id number] CBC + Comprehensive Metabolic Panel + [facility] [id number] Lab Appointment [id number] Type and Crossmatch + [id number] Scan + Chest + Abdomen and Pelvis + With W/O Contrast [id number] Cardiac ECHO [id number] Comprehensive Metabolic Panel - 12 + CBC with Auto Diff RETURN TO CLINIC: I reviewed the diagnosis, prognosis, and recommended treatment/procedure options with the patient (and/or their legal insurance claims representative), including the potential benefits, risks, side effects and alternative therapies. We also discussed the option of no treatment and the possibility of clinical trial participation, if applicable. All questions were addressed, and they demonstrated understanding. They provided informed consent to proceed with the proposed plan of care. BILLING AND COMPLIANCE: I reviewed external records from providers outside my specialty as summarized above. I spent a total of 50 minutes on this patient?s care on the day of their visit excluding time spent related to any billed procedures. This time includes time spent with the patient as well as time spent documenting in the medical record, reviewing patients records and tests, obtaining history, placing orders, communicating with other healthcare professionals, counseling the patient, family or caregiver, and/or care coordination for the diagnoses above. Electronically Signed by: {Object.Sanct_ID*[email or web address]@M}, {Object.Sanct_ID*PnP.Suffix@U} D: {Object.Sanct_Date} T: {Object.Sanct_Time} CC: PCP: Arcenio Ding Referring: Arcenio Ding This document was completed utilizing speech recognition software. Grammatical errors, random word insertions, pronoun errors, and incomplete sentences are an occasional consequence of this system due to software limitations, ambient noise, and hardware issues. Any formal questions or concerns about the content, text or information contained within the body of this dictation should be directly addressed to the provider for clarification.
== END 2024-11-08 23:59 | disposition home or self-care (01) ==
LOC: SCTC 14:50
PROVIDERS: PCP Family Medicine; Referring Provider Family Medicine; Visit Provider Internal Medicine Hematology & Oncology
DX: Z51.11 Encounter for antineoplastic chemotherapy (principal); C16.9 Malignant neoplasm of stomach, unspecified; C25.1 Malignant neoplasm of body of pancreas; R91.1 Solitary pulmonary nodule
CPT/HCPCS: 36415; 36430; 71270; 74178; 80053; 82378; 85025; 86850; 86900; 86901; 86923; 96360; 96361; 96367; 96368; 96372; 96413; 96415; 96416; 96417; 99212; A4216; A4649; J0640; J1100; J1453; J1642; J2405; J7030; J7040; J7050; J9171; J9190; J9263; P9016; Q5101; Q9967; G0463

== ENCOUNTER 2024-12-07 08:43 | Outpatient (RCR) | payer MEDICARE, SELFPAY ==
[2024-11-15 13:56] LABS: Basophils # (Auto) 0.0 Thou/mm3 (0.0-0.2); Basophils % (Auto) 1 % (0-2.5); Eosinophils # (Auto) 0.0 Thou/mm3 (0.0-0.5); Eosinophils % (Auto) 0 % (0-10); Hematocrit 32.9 % (36.0-46.0); Hemoglobin 9.8 g/dL (12.0-16.0); Immature Granulocytes Auto 0.07 Thou/mm3 (0.00-0.00); Lymphocytes # (Auto) 0.5 Thou/mm3 (1.0-4.8); Lymphocytes % (Auto) 14 % (10-50); Mean Corpuscular HGB Conc 29.8 g/dl (31.0-37.0); Mean Corpuscular Hemoglobin 23.4 pg (25.0-35.0); Mean Corpuscular Volume 79 fL (80-100); Monocytes # (Auto) 0.1 Thou/mm3 (0.0-0.8); Monocytes % (Auto) 4 % (0-12); Neutrophils # (Auto) 2.9 Thou/mm3 (1.8-7.7); Neutrophils % (Auto) 79 % (37-80); Nucleated Red Blood Cell # 0.00 Thou/mm3 (0.00-0.00); Nucleated Red Blood Cell % 0 /100 WBC (0); Platelet Count 171 Thou/mm3 (140-440); RDW Standard Deviation 62.6 fL (36.4-46.3); Red Blood Count 4.19 Miln/mm3 (4.00-5.20); White Blood Count 3.7 Thou/mm3 (3.6-11.0)
[2024-11-15 14:19] LABS: Alanine Aminotransferase 22 U/L (10-49); Albumin, Serum 4.3 gm/dL (3.4-4.8); Albumin/Globulin Ratio 1.8 (1.2-2.2); Alkaline Phosphatase 96 U/L (46-116); Anion Gap 11 (7-16); Aspartate Amino Transferase 31 U/L (0-34); BUN/Creatinine Ratio 21 Ratio (12-20); Bilirubin,Total 0.5 mg/dL (0.3-1.2); Blood Urea Nitrogen 15 mg/dL (9-23); Calcium 9.3 mg/dL (8.3-10.6); Calcium (Corrected) 9.3 mg/dL (8.5-10.1); Carbon Dioxide 28.4 mMol/L (20.0-31.0); Chloride 105 mMol/L (98-107); Creatinine (Component) 0.7 mg/dL (0.6-1.3); Globulin 2.4 gm/dL (2.3-3.5); Glucose 169 mg/dL (74-106); Osmolality,Calculated 291 (275-295); Potassium 4.2 mMol/L (3.4-5.1); Sodium 144 mMol/L (136-145); Total Protein 6.7 gm/dL (5.7-8.2); eGFR > 60 See Note
[2024-11-15 14:20] LABS: Carcinoembryonic Antigen < 0.5 ng/mL (0.0-5.0)
== END 2024-12-09 23:59 | disposition home or self-care (01) ==
LOC: SCTC 08:43
PROVIDERS: PCP Family Medicine; Referring Provider Family Medicine; Visit Provider Internal Medicine Hematology & Oncology
DX: Z51.11 Encounter for antineoplastic chemotherapy (principal); C16.9 Malignant neoplasm of stomach, unspecified; C25.9 Malignant neoplasm of pancreas, unspecified
CPT/HCPCS: 36415; 36591; 80053; 82378; 85025; 96367; 96368; 96372; 96413; 96415; 96416; 96417; A4216; J0640; J1100; J1453; J1642; J2405; J7050; J9171; J9190; J9263; Q5101

== ENCOUNTER → 2024-12-21 | Outpatient (CLI) | payer MEDICARE, SELFPAY ==
[2024-12-21 11:39] LABS: Basophils # (Auto) 0.1 Thou/mm3 (0.0-0.2); Basophils % (Auto) 1 % (0-2.5); Eosinophils # (Auto) 0.3 Thou/mm3 (0.0-0.5); Eosinophils % (Auto) 6 % (0-10); Hematocrit 31.0 % (36.0-46.0); Hemoglobin 9.3 g/dL (12.0-16.0); Immature Granulocytes Auto 0.01 Thou/mm3 (0.00-0.00); Lymphocytes # (Auto) 1.0 Thou/mm3 (1.0-4.8); Lymphocytes % (Auto) 22 % (10-50); Mean Corpuscular HGB Conc 30.0 g/dl (31.0-37.0); Mean Corpuscular Hemoglobin 24.1 pg (25.0-35.0); Mean Corpuscular Volume 80 fL (80-100); Monocytes # (Auto) 0.4 Thou/mm3 (0.0-0.8); Monocytes % (Auto) 10 % (0-12); Neutrophils # (Auto) 2.7 Thou/mm3 (1.8-7.7); Neutrophils % (Auto) 61 % (37-80); Nucleated Red Blood Cell # 0.00 Thou/mm3 (0.00-0.00); Nucleated Red Blood Cell % 0 /100 WBC (0); Platelet Count 185 Thou/mm3 (140-440); RDW Standard Deviation 60.8 fL (36.4-46.3); Red Blood Count 3.86 Miln/mm3 (4.00-5.20); White Blood Count 4.4 Thou/mm3 (3.6-11.0)
[2024-12-21 11:51] LABS: INR 1.0 (0.9-1.3); Partial Thromboplastin Time 23.1 Seconds (22.0-36.0); Prothrombin Time 11.3 Seconds (9.0-12.2)
[2024-12-21 11:54] LABS: Anion Gap 10 (7-16); BUN/Creatinine Ratio 20 Ratio (12-20); Blood Urea Nitrogen 14 mg/dL (9-23); Calcium 9.2 mg/dL (8.3-10.6); Carbon Dioxide 28.5 mMol/L (20.0-31.0); Chloride 105 mMol/L (98-107); Creatinine (Component) 0.7 mg/dL (0.6-1.3); Glucose 148 mg/dL (74-106); Osmolality,Calculated 288 (275-295); Potassium 3.9 mMol/L (3.4-5.1); Sodium 143 mMol/L (136-145); eGFR > 60 See Note
== END | disposition home or self-care (01) ==
LOC: COPL 10:42
PROVIDERS: PCP Family Medicine; Referring Provider Registered Nurse; Visit Provider Registered Nurse
DX: Z01.818 Encounter for other preprocedural examination (principal)
CPT/HCPCS: 36415; 80048; 85025; 85610; 85730

== ENCOUNTER → 2024-12-26 | Outpatient (CLI) | payer MEDICARE, SELFPAY ==
--- NOTE | 2024-12-26 14:30 | ECHO_ITS ---
Transthoracic Echo Report Ht (in): 64 Wt (lb): 121 Exam Location: Echo Lab Status: Preadmit Billing And Accounting Staff Assistant: Danelle Thompson Indications: Procedure Performed: BP: / HR: Technical Quality: Poor MEASUREMENTS (Male / Female) Normal Values 2D ECHO LV Diastolic Diameter PLAX 4.5 cm 4.2 - 5.9 / 3.9 - 5.3 cm LV Systolic Diameter PLAX 2.8 cm IVS Diastolic Thickness 0.8 cm 0.6 - 1.0 / 0.6 - 0.9 cm LVPW Diastolic Thickness 1.0 cm 0.6 - 1.0 / 0.6 - 0.9 cm LV Relative Wall Thickness 0.4 LVOT Diameter 1.4 cm LV Ejection Fraction MOD BP 53.7 % >= 55 % LV Ejection Fraction MOD 4C 63.2 % LV Ejection Fraction 4C AL 64.0 % LV Ejection Fraction MOD 2C 44.4 % LV Ejection Fraction 2C AL 45.5 % LA Volume Index 14.5 cm?/m? 16 - 28 cm?/m? M-MODE Aortic Root Diameter MM 2.2 cm LA Systolic Diameter MM 2.8 cm LA Ao Ratio MM 1.3 AV Cusp Separation MM 1.3 cm DOPPLER AV Peak Velocity 146.0 cm/s AV Peak Gradient 8.5 mmHg AV Mean Gradient 4.0 mmHg AV Velocity Time Integral 30.8 cm LVOT Peak Velocity 87.9 cm/s LVOT Peak Gradient 3.1 mmHg LVOT Velocity Time Integral 22.0 cm AV Area Cont Eq vti 1.1 cm? AV Area Cont Eq pk 0.9 cm? MV Area PHT 4.9 cm? Mitral E Point Velocity 89.7 cm/s Mitral A Point Velocity 99.4 cm/s Mitral E to A Ratio 0.9 LV E' Lateral Velocity 8.7 cm/s Mitral E to LV E' Lateral Ratio 10.3 LV E' Septal Velocity 8.9 cm/s Mitral E to LV E' Septal Ratio 10.1 FINDINGS Left Ventricle Normal left ventricular size, wall thickness, systolic function with no obvious regional wall motion abnormalities. The ejection fraction is visually estimated at 65 %. There is grade I diastolic dysfunction of the left ventricle (impaired relaxation pattern). Right Ventricle The right ventricle is normal in size and systolic function. Left Atrium The left atrium is normal by two-dimensional, color flow and Doppler imaging with no structural abnormalities, no thrombus formation present. Right Atrium The right atrium is normal by two-dimensional imaging, color flow and Doppler imaging with no structural abnormalities, no thrombus formation present. Atrial Septum The interatrial septum appears normal with no evidence of a shunt. Aorta The aorta is normal by two-dimensional, color flow and Doppler interrogation. Mitral Valve The mitral valve is normal by two-dimensional, color flow and Doppler interrogation. There is no significant mitral valve regurgitation, stenosis or prolapse. Aortic Valve The aortic valve is trileaflet and normal by two-dimensional, color flow and Doppler interrogation. There is no significant aortic valve regurgitation. Tricuspid Valve The tricuspid valve is normal by two-dimensional, color flow and Doppler interrogation. There is trace tricuspid valve regurgitation. Pulmonic Valve The pulmonic valve is not well visualized. There is no significant pulmonic valve regurgitation. Vessels The pulmonary artery appears normal. The inferior vena cava pulmonary and hepatic veins appear normal. Pericardium The pericardium is normal by two-dimensional imaging. There is no significant pericardial effusion. CONCLUSIONS Indication: Malignant neoplasm of stomach Normal LV size and function. Approximate ejection fraction is 65%. The RV is normal in size and systolic function. Trace mitral and trace tricuspid regurgitation No wall motion abnormalities Cyndee Henriquez (Electronically Signed) Final Date: 26 December 2024 17:40
== END | disposition home or self-care (01) ==
LOC: SDIM 12-30 08:57
PROVIDERS: PCP Family Medicine; Referring Provider Internal Medicine Hematology & Oncology; Visit Provider Internal Medicine Hematology & Oncology
DX: I08.1 Rheumatic disorders of both mitral and tricuspid valves (principal); C16.9 Malignant neoplasm of stomach, unspecified
CPT/HCPCS: 93306

== ENCOUNTER 2025-01-26 11:21 | Outpatient (RCR) | payer MEDICARE, SELFPAY ==
[2025-01-25 14:01] LABS: Basophils # (Auto) 0.0 Thou/mm3 (0.0-0.2); Basophils % (Auto) 1 % (0-2.5); Eosinophils # (Auto) 0.1 Thou/mm3 (0.0-0.5); Eosinophils % (Auto) 3 % (0-10); Hematocrit 32.3 % (36.0-46.0); Hemoglobin 9.7 g/dL (12.0-16.0); Immature Granulocytes Auto 0.01 Thou/mm3 (0.00-0.00); Lymphocytes # (Auto) 1.0 Thou/mm3 (1.0-4.8); Lymphocytes % (Auto) 23 % (10-50); Mean Corpuscular HGB Conc 30.0 g/dl (31.0-37.0); Mean Corpuscular Hemoglobin 24.0 pg (25.0-35.0); Mean Corpuscular Volume 80 fL (80-100); Monocytes # (Auto) 0.4 Thou/mm3 (0.0-0.8); Monocytes % (Auto) 9 % (0-12); Neutrophils # (Auto) 2.8 Thou/mm3 (1.8-7.7); Neutrophils % (Auto) 64 % (37-80); Nucleated Red Blood Cell # 0.00 Thou/mm3 (0.00-0.00); Nucleated Red Blood Cell % 0 /100 WBC (0); Platelet Count 205 Thou/mm3 (140-440); RDW Standard Deviation 50.3 fL (36.4-46.3); Red Blood Count 4.05 Miln/mm3 (4.00-5.20); White Blood Count 4.3 Thou/mm3 (3.6-11.0)
[2025-01-25 14:12] LABS: Glucose Estimated Average 134 mg/dL (80-131); Hemoglobin A1C 6.3 % Hgb (4.8-6.0)
[2025-01-25 14:21] LABS: Alanine Aminotransferase 16 U/L (10-49); Albumin, Serum 4.4 gm/dL (3.4-4.8); Albumin/Globulin Ratio 2.0 (1.2-2.2); Alkaline Phosphatase 91 U/L (46-116); Anion Gap 12 (7-16); Aspartate Amino Transferase 25 U/L (0-34); BUN/Creatinine Ratio 19 Ratio (12-20); Bilirubin,Total 0.4 mg/dL (0.3-1.2); Blood Urea Nitrogen 13 mg/dL (9-23); Calcium 9.7 mg/dL (8.3-10.6); Calcium (Corrected) 9.7 mg/dL (8.5-10.1); Carbon Dioxide 27.4 mMol/L (20.0-31.0); Chloride 105 mMol/L (98-107); Creatinine (Component) 0.7 mg/dL (0.6-1.3); Globulin 2.2 gm/dL (2.3-3.5); Glucose 93 mg/dL (74-106); Osmolality,Calculated 286 (275-295); Potassium 3.5 mMol/L (3.4-5.1); Sodium 144 mMol/L (136-145); Total Protein 6.6 gm/dL (5.7-8.2); eGFR > 60 See Note
[2025-01-25 14:24] LABS: Carcinoembryonic Antigen 0.6 ng/mL (0.0-5.0)
--- NOTE | 2025-01-30 23:58 | CTCFLWUP_ITS ---
Patient: BERT POP : 1945 Page 11 of 11 FOLLOW UP NOTE DATE OF SERVICE: 01/27/2025 NAME: BERT POP ACCOUNT: [id number] : 1945 AGE: 79 INTERVAL HISTORY: Carolyn, a patient with gastric cancer, presented for follow. Per patient she had a good surgical outcome as per her surgeon and all tumor was it removed. Patient is very likely to get any further chemotherapy.-. Her recent CT scan showed no new nodules, absent perigastric lymph nodes, and stable stomach thickening, indicating effective treatment. Both TeraTesting and Netera tests revealed a tumor marker of 0.29. Having completed 7 of 8 planned chemotherapy cycles with minimal side effects, she will finish treatment in November, receive white-cell shots, undergo pre-surgical testing (echocardiogram, EKG, blood work), and proceed to surgery 3-[address] Mishra. History of Present Illness the patient's recent CT scan shows no new nodules or progression of the disease, indicating that the chemotherapy is working effectively. The edwin gastric lymph nodes are no longer present, and the parotid lymph node remains very small. The stomach thickening observed in previous scans remains unchanged. A Ellen test performed in August was positive at 0.29, indicating a very small tumor marker. A new Netera test, which measures minimal residual disease, also showed a result of 0.29. The patient is scheduled for her 8th and final chemotherapy treatment in November, after which she will receive white-cell shots. Carolyn has been actively involved in managing her care, keeping track of her treatments and maintaining calendars. She plans to contact the surgeon, Dr. Mishra, to inform him that her treatment is ending by the second week of November and to discuss scheduling the surgery. Medications and Supplements - Chemotherapy - Started on August 03 - 7 cycles completed, 8th cycle scheduled for November - Minimal side effects - Patient getting tired with each session Review of Systems General: Positive for fatigue. 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 Consumes berries, almonds, cashews, and protein shakes. Eats salmon or chicken daily with vegetables. - Exercise: Patient described as very active and fit - Nutrition: Clinician recommends a diet rich in berries, turmeric, spinach, salmon, chicken, vegetables, and protein shakes. Advised to avoid bread and focus on high-calorie, nutrient-dense foods like peanut butter and almond butter. Review of Systems General: Negative for weight loss. Laboratory, Imaging, and Diagnostic Test Results - TeraTesting test (August 2024): 0.29 (positive) - CT scan (date not specified): - No new nodules - Perigastric lymph nodes no longer present - Parotid lymph node remains very small - No new growth - Stomach thickening remains the same - Netera test (date not specified): 0.29 ONCOLOGY HISTORY:?[facility] Oncology Hx? DIAGNOSIS: #1 malignant neoplasm of stomach, unspecified [ICD10] C16.9 Adenosquamous cell carcinoma #2 neuroendocrine tumor of pancreas DATE OF DIAGNOSIS: 06/04/2024 STAGE/TNM: #1 T3 N1 poorly differentiated invasive adenosquamous cell cancer HER2 2+ PD-L1 CPS more than 1 microsatellite stable #2 tumor of pancreas T3 N1 lymphoid tumor mixed with epithelial cells final biopsy still pending #3 history of anal cancer in 2012 treated with chemo RT with mitomycin 5-FU and in remission TREATMENT HISTORY: Care?Plan Start?Date Cycle Day Intent FLOT?neoadjuvant 07/21/2024 1 14 Curative?(adjuvant) FLOT?Perioperative 08/03/2024 1 14 Maintenance KEYTRUDA?200 01/26/2025 1 21 Palliative HISTORY OF PRESENT ILLNESS: 79-year-old female who had a regular colonoscopy at the age of 57 and there was no findings. 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 She was treated in [place] with concurrent chemoradiation with 5-FU. Patient was evaluated for anemia as her stools were Hemoccult positive patient underwent EGD which showed stomach mass in the mid body which was positive for invasive adenocarcinoma intestinal-type grade 1. All other areas were negative and H. Pylori was negative. There was no loss of expression of MSH2 6 PMS2 or MLH1. 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 Calcium 600 + D - 600 mg Daily 2. losartan - 25 mg 1 tab Daily 3. metformin - 750 mg Twice a Day 4. Prilosec - 20 mg Daily 5. Vitamin C - 1,000 mg 1 tab Daily?Palabra Meds? Medications Last Reconciled by Mera Joshua MA on 01/26/2025 (Reconcile on Approval: ?) ALLERGIES: NKA*; No Known Drug Allergies REVIEW OF SYSTEMS: A complete 14-point review of systems was performed and is negative except as noted in interval history. PHYSICAL EXAMINATION:?CloneBlock PE? VITAL SIGNS: PAIN: None ECOG Performance Status: None GENERAL APPEARANCE: Appears well, in no apparent distress, appropriately interactive. HEENT: Normocephalic, no temporal wasting, normal conjunctiva, no scleral icterus, normal hearing, lips without lesions, neck normal range of motion. CARDIOVASCULAR: Not assessed. PULMONARY: Normal respiratory effort, no respiratory distress or use of accessory muscles, speaking in full sentences, no tachypnea. EXTREMITIES: No pedal edema or cyanosis. SKIN: Normal skin appearance. NEUROLOGIC: Alert and oriented x4. PSHYCHIATRIC: Appropriate affect, mood normal, behavior normal, intact thought and speech. LABORATORY DATA: I have personally reviewed and interpreted each of the patient?s relevant lab tests, abnormal findings are below: Date 12/21/24 01/25/25 ??WHITE?BLOOD?COUNT?(Thou/mm3) 4.4 4.3 ??RED?BLOOD?COUNT?(Miln/mm3) 3.86?L 4.05 ??HEMOGLOBIN?(gm/dl) 9.3?L 9.7?L ??HEMATOCRIT?(%) 31.0?L 32.3?L ??PLATELET?COUNT?(Thou/mm3) 185 205 ??NEUTROPHILS?%,?AUTO?(%) 61 64 ??LYMPH?%,?AUTO?(%) 22 23 ??NEUTROPHILS,?AUTO?(Thou/mm3) 2.7 2.8 ??GLUCOSE,RANDOM?(mg/dL) ? 93 ??BLOOD?UREA?NITROGEN?(mg/dL) ? 13 ??CREATININE?(mg/dL) ? 0.70 ??SODIUM?(mmol/L) ? 144 ??POTASSIUM?(mmol/L) ? 3.5 ??CHLORIDE?(mmol/L) ? 105 ??CrCl?(CandG)?(ml/min) ? 56.10 ??AST/SGOT?(Unit/L) ? 25 ??ALT/SGPT?(Unit/L) ? 16 ??ALKALINE?PHOSPHATASE?(Unit/L) ? 91 ??BILIRUBIN,?TOTAL?(mg/dL) ? 0.4 ??PROTEIN?TOTAL?(gm/dl) ? 6.6 ??ALBUMIN,?SERUM?(gm/dl) ? 4.4 ??GLOBULIN?(gm/dl) ? 2.2?L ??ALBUMIN/GLOBULIN?RATIO ? 2.0 ??CALCIUM,?SERUM?(mg/dL) ? 9.7 ??CALCIUM?SERUM?(CORRECTED)?(mg/dL) ? 9.7 ??CEA?(O*)?(ng/ml) ? 0.6 ASSESSMENT/PLAN:?Iglesia Silva Assessment/Plan? 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 The cancer is microsatellite-stable, HER2 positive, and PDL1 positive. Carolyn, a patient with gastric cancer, is undergoing chemotherapy and preparing for surgery. Completed 8 cycles of FLOT regimen PERIOPERATIVE CHEMOTHERAPY PREFERRED REQIMEN fluorouracil leucovorin oxaliplatin and docetaxel FLOT 4 cycles of preoperative and 4 cycles postoperative (- Fluorouracil 2600 mglmz IV continuous infusion over 24 hours on Day 1 Leucovorin 200 mglmz IV on Day 1 Oxaliplatin 85 mglmz IV on Day 1 Docetaxel 50 mglmz IV on Day 1 Cycled every 14 days1--as patient is elderly dose reduced by 20% to increase tolerance Status post resection of the tumor Patient clinically healed well Reviewed patient's Signatera testing Offered immunotherapy as palliative as patient likely have residual tumor Will continue immunotherapy ORDERS: Order # Description RETURN TO CLINIC: I reviewed the diagnosis, prognosis, and recommended treatment/procedure options with the patient (and/or their legal sales representative adding machines), including the potential benefits, risks, side effects and alternative therapies. We also discussed the option of no treatment and the possibility of clinical trial participation, if applicable. All questions were addressed, and they demonstrated understanding. They provided informed consent to proceed with the proposed plan of care. BILLING AND COMPLIANCE: I reviewed external records from providers outside my specialty as summarized above. I spent a total of 50 minutes on this patient?s care on the day of their visit excluding time spent related to any billed procedures. This time includes time spent with the patient as well as time spent documenting in the medical record, reviewing patients records and tests, obtaining history, placing orders, communicating with other healthcare professionals, counseling the patient, family or caregiver, and/or care coordination for the diagnoses above. Electronically Signed by: Pedro Silva MD T: 11:56 PM CC: PCP: Arcenio Ding Referring: Arcenio Ding This document was completed utilizing speech recognition software. Grammatical errors, random word insertions, pronoun errors, and incomplete sentences are an occasional consequence of this system due to software limitations, ambient noise, and hardware issues. Any formal questions or concerns about the content, text or information contained within the body of this dictation should be directly addressed to the provider for clarification.
== END 2025-02-08 23:59 | disposition home or self-care (01) ==
LOC: SCTC 11:21
PROVIDERS: PCP Family Medicine; Referring Provider Family Medicine; Visit Provider Internal Medicine Hematology & Oncology
DX: C16.9 Malignant neoplasm of stomach, unspecified (principal); C25.9 Malignant neoplasm of pancreas, unspecified
CPT/HCPCS: 36415; 80053; 82378; 83036; 85025; 99212; G0463

== ENCOUNTER 2025-03-09 09:00 | Outpatient (RCR) | payer MEDICARE, SELFPAY | END 2025-03-11 23:59 | disposition home or self-care (01) | LOC: SCTC 09:00 | PROVIDERS: PCP Family Medicine; Referring Provider Family Medicine; Visit Provider Internal Medicine Hematology & Oncology | DX: C16.9 Malignant neoplasm of stomach, unspecified (principal); C25.9 Malignant neoplasm of pancreas, unspecified | CPT/HCPCS: 36415 ==

== ENCOUNTER → 2025-03-11 | Outpatient (CLI) | payer MEDICARE, SELFPAY ==
--- NOTE | 2025-03-11 | XR_ITS ---
Examination: Shoulder, right, 3 views Technique: Shoulder AP internal rotation, AP external rotation, Y view shoulder, 3 views Exam date and time : March 11, 2025, 1150 hours INDICATIONS: Patient felt a pop in the right shoulder 6 months ago with persistent pain FINDINGS: Moderate narrowing right glenohumeral joint No shoulder fracture or dislocation IMPRESSION: Moderate osteoarthritis glenohumeral joint
== END | disposition home or self-care (01) ==
PROVIDERS: PCP Family Medicine; Referring Provider Orthopaedic Surgery; Visit Provider Orthopaedic Surgery
DX: M19.011 Primary osteoarthritis, right shoulder (principal)
CPT/HCPCS: 73030

== ENCOUNTER 2025-03-28 15:28 | Outpatient (RCR) | payer MEDICARE, SELFPAY ==
--- NOTE | 2025-04-03 22:42 | CTCFLWUP_ITS ---
Patient: BERT POP : 1945 Page 2 of 2 FOLLOW UP NOTE DATE OF SERVICE: 03/28/2025 NAME: BERT POP ACCOUNT: [id number] : 1945 AGE: 79 INTERVAL HISTORY: Summary -Carolyn, a patient with gastric cancer, presented for follow. Patient received 8 cycles of treatment with FLOT regiment followed by surgery. After surgery she was told there was no residual cancer. Patient's surgical margins were negative. Patient now comes to follow-up on naterra results. Patient Signatera results are showing elevation in tumor marker concerning for recurrence. Plan is to get CT chest abdomen pelvis. Will start patient on get Keytruda as patient have high PD-L1. Medications and Supplements - Chemotherapy - Started on August 03 -Completed cycle C8- Minimal side effects S/p surgery Review of Systems General: Positive for fatigue. 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 Consumes berries, almonds, cashews, and protein shakes. Eats salmon or chicken daily with vegetables. - Exercise: Patient described as very active and fit - Nutrition: Clinician recommends a diet rich in berries, turmeric, spinach, salmon, chicken, vegetables, and protein shakes. Advised to avoid bread and focus on high-calorie, nutrient-dense foods like peanut butter and almond butter. Review of Systems General: Negative for weight loss. Laboratory, Imaging, and Diagnostic Test Results - TeraTesting test (August 2024): 0.29 (positive) - CT scan (date not specified): - No new nodules - Perigastric lymph nodes no longer present - Parotid lymph node remains very small - No new growth - Stomach thickening remains the same - Netera test (date not specified): 0.29 ONCOLOGY HISTORY:?[facility] Oncology Hx? DIAGNOSIS: #1 malignant neoplasm of stomach, unspecified [ICD10] C16.9 Adenosquamous cell carcinoma #2 neuroendocrine tumor of pancreas DATE OF DIAGNOSIS: 06/04/2024 STAGE/TNM: #1 T3 N1 poorly differentiated invasive adenosquamous cell cancer HER2 2+ PD-L1 CPS more than 1 microsatellite stable #2 tumor of pancreas T3 N1 lymphoid tumor mixed with epithelial cells final biopsy still pending #3 history of anal cancer in 2011 treated with chemo RT with mitomycin 5-FU and in remission TREATMENT HISTORY: Care?Plan Start?Date Cycle Day Intent FLOT?neoadjuvant 07/21/2024 1 14 Curative?(adjuvant) FLOT?Perioperative 08/03/2024 1 14 Maintenance KEYTRUDA?200 01/26/2025 1 21 Palliative HISTORY OF PRESENT ILLNESS: 79-year-old female who had a regular colonoscopy at the age of 57 and there was no findings. 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 She was treated in [place] with concurrent chemoradiation with 5-FU. Patient was evaluated for anemia as her stools were Hemoccult positive patient underwent EGD which showed stomach mass in the mid body which was positive for invasive adenocarcinoma intestinal-type grade 1. All other areas were negative and H. Pylori was negative. There was no loss of expression of MSH2 6 PMS2 or MLH1. 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 Calcium 600 + D - 600 mg Daily 2. losartan - 25 mg 1 tab Daily 3. metformin - 750 mg Twice a Day 4. Prilosec - 20 mg Daily 5. Vitamin C - 1,000 mg 1 tab Daily?Palabra Meds? Medications Last Reconciled by Mera Andino MD on 03/28/2025 ALLERGIES: NKA*; No Known Drug Allergies REVIEW OF SYSTEMS: A complete 14-point review of systems was performed and is negative except as noted in interval history. PHYSICAL EXAMINATION: VITAL SIGNS: Temperature?97.5, B/P?169/72, Oxygen?Saturation?100% Weight?106?lbs (Change?since?03/09/25:?-1.4?lbs) PAIN: 0 - No pain ECOG Performance Status: 0 - Asymptomatic and fully active GENERAL APPEARANCE: Appears well, in no apparent distress, appropriately interactive. HEENT: Normocephalic, no temporal wasting, normal conjunctiva, no scleral icterus, normal hearing, lips without lesions, neck normal range of motion. CARDIOVASCULAR: Not assessed. PULMONARY: Normal respiratory effort, no respiratory distress or use of accessory muscles, speaking in full sentences, no tachypnea. EXTREMITIES: No pedal edema or cyanosis. SKIN: Normal skin appearance. NEUROLOGIC: Alert and oriented x4. PSHYCHIATRIC: Appropriate affect, mood normal, behavior normal, intact thought and speech. LABORATORY DATA: I have personally reviewed and interpreted each of the patient?s relevant lab tests, abnormal findings are below: Date 12/21/24 01/25/25 ??WHITE?BLOOD?COUNT?(Thou/mm3) ? 4.3 ??RED?BLOOD?COUNT?(Miln/mm3) ? 4.05 ??HEMOGLOBIN?(gm/dl) ? 9.7?L ??HEMATOCRIT?(%) ? 32.3?L ??PLATELET?COUNT?(Thou/mm3) ? 205 ??NEUTROPHILS?%,?AUTO?(%) ? 64 ??LYMPH?%,?AUTO?(%) ? 23 ??NEUTROPHILS,?AUTO?(Thou/mm3) ? 2.8 ??GLUCOSE,RANDOM?(mg/dL) 148?H 93 ??BLOOD?UREA?NITROGEN?(mg/dL) 14 13 ??CREATININE?(mg/dL) 0.70 0.70 ??SODIUM?(mmol/L) 143 144 ??POTASSIUM?(mmol/L) 3.9 3.5 ??CHLORIDE?(mmol/L) 105 105 ??CrCl?(CandG)?(ml/min) 60.92 56.10 ??AST/SGOT?(Unit/L) ? 25 ??ALT/SGPT?(Unit/L) ? 16 ??ALKALINE?PHOSPHATASE?(Unit/L) ? 91 ??BILIRUBIN,?TOTAL?(mg/dL) ? 0.4 ??PROTEIN?TOTAL?(gm/dl) ? 6.6 ??ALBUMIN,?SERUM?(gm/dl) ? 4.4 ??GLOBULIN?(gm/dl) ? 2.2?L ??ALBUMIN/GLOBULIN?RATIO ? 2.0 ??CALCIUM,?SERUM?(mg/dL) 9.2 9.7 ??CALCIUM?SERUM?(CORRECTED)?(mg/dL) ? 9.7 ??CEA?(O*)?(ng/ml) ? 0.6 ASSESSMENT/PLAN:?Iglesia Silva Assessment/Plan? 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 The cancer is microsatellite-stable, HER2 positive, and PDL1 positive. Carolyn, a patient with gastric cancer, is undergoing chemotherapy and preparing for surgery. Completed 8 cycles of FLOT regimen PERIOPERATIVE CHEMOTHERAPY PREFERRED REQIMEN fluorouracil leucovorin oxaliplatin and docetaxel FLOT 4 cycles of preoperative and 4 cycles postoperative (- Fluorouracil 2600 mglmz IV continuous infusion over 24 hours on Day 1 Leucovorin 200 mglmz IV on Day 1 Oxaliplatin 85 mglmz IV on Day 1 Docetaxel 50 mglmz IV on Day 1 Cycled every 14 days1--as patient is elderly dose reduced by 20% to increase tolerance Status post resection of the tumor Patient clinically healed well Reviewed patient's Signatera testing Offered immunotherapy as palliative as patient likely have residual tumor Will continue immunotherapy ORDERS: Order # Description [id number] CBC + Comprehensive Metabolic Panel [id number] Lab Appointment [id number] CT Scan + Chest + Abdomen and Pelvis + With Contrast [id number] Follow Up 4 Week [id number] Follow Up Appointment MD RETURN TO CLINIC: I reviewed the diagnosis, prognosis, and recommended treatment/procedure options with the patient (and/or their legal scheduling representative), including the potential benefits, risks, side effects and alternative therapies. We also discussed the option of no treatment and the possibility of clinical trial participation, if applicable. All questions were addressed, and they demonstrated understanding. They provided informed consent to proceed with the proposed plan of care. BILLING AND COMPLIANCE: I reviewed external records from providers outside my specialty as summarized above. I spent a total of 50 minutes on this patient?s care on the day of their visit excluding time spent related to any billed procedures. This time includes time spent with the patient as well as time spent documenting in the medical record, reviewing patients records and tests, obtaining history, placing orders, communicating with other healthcare professionals, counseling the patient, family or caregiver, and/or care coordination for the diagnoses above. Electronically Signed by: Pedro Silva MD T: 10:39 PM CC: PCP: Arcenio Ding Referring: Arcenio Ding This document was completed utilizing speech recognition software. Grammatical errors, random word insertions, pronoun errors, and incomplete sentences are an occasional consequence of this system due to software limitations, ambient noise, and hardware issues. Any formal questions or concerns about the content, text or information contained within the body of this dictation should be directly addressed to the provider for clarification.
== END 2025-04-10 23:59 | disposition home or self-care (01) ==
LOC: SCTC 15:28
PROVIDERS: PCP Family Medicine; Referring Provider Family Medicine; Visit Provider Internal Medicine Hematology & Oncology
DX: C16.9 Malignant neoplasm of stomach, unspecified (principal); C25.9 Malignant neoplasm of pancreas, unspecified; Z85.048 Personal history of other malignant neoplasm of rectum, rectosigmoid junction, and anus; Z92.21 Personal history of antineoplastic chemotherapy
CPT/HCPCS: 99212; G0463